=== PATIENT | male | born 1985 | race Caucasian/White ===

== ENCOUNTER 2017-06-09 12:34 | Emergency (ER) | payer SELFPAY ==
[~2017-06-09] VITALS: Ht 167.6 cm; Wt 77.1 kg
[2017-06-09 12:47] VITALS: BP 130/69
--- NOTE | 2017-06-09 13:11 | NUR ---
Patient to bed 04.
--- NOTE | 2017-06-09 13:19 | NUR ---
PT PRESENTS TO ER W/C/O LEFT EYE PAIN/SWELLING SINCE LAST NOC. PT DENIES ANY INJURY OR TRAUMA. DENIES N/V/D; SKIN IS PINK/WARM/DRY; AAOX4 WITH EVEN AND STEADY GAIT; LUNGS CLEAR BL; HR EVEN AND REGULAR; PT DENIES ANY FEVER, CP, SOB, OR COUGH AT THIS TIME; PATIENT STATES PAIN OF 4/10 AT THIS TIME; VSS; PATIENT POSITIONED FOR COMFORT; HOB ELEVATED; BEDRAILS UP X2; BED DOWN. ER MD MADE AWARE OF PT STATUS.
[2017-06-09 14:16] VITALS: BP 114/66
--- NOTE | 2017-06-09 14:16 | NUR ---
Patient discharged with v/s stable. Written and verbal after care instructions given and explained. Patient alert, oriented and verbalized understanding of instructions. Ambulatory with steady gait. All questions addressed prior to discharge. ID band removed. Patient advised to follow up with PMD. Rx of ERYTHROMYCIN given. Patient educated on indication of medication including possible reaction and side effects. Opportunity to ask questions provided and answered.
== END 2017-06-09 14:16 | disposition home or self-care (01) ==
LOC: MED 12:34
DX: H01.004 Unspecified blepharitis left upper eyelid (principal); F17.210 Nicotine dependence, cigarettes, uncomplicated
CPT/HCPCS: 99283

== ENCOUNTER 2020-08-17 01:18 | Emergency (ER) | payer SELFPAY ==
[~2020-08-17] VITALS: Ht 167.6 cm; Wt 79.4 kg
[2020-08-17 01:24] VITALS: BP 141/94
[2020-08-17] MEDS ORDERED: ERYTHROMYCIN 0.5% OPTH OINT 1 GM TUBE OP ONE (01:40)
--- NOTE | 2020-08-17 01:51 | NUR ---
no nursing interventions needed
[2020-08-17 01:52] VITALS: BP 141/94
--- NOTE | 2020-08-17 01:52 | NUR ---
Patient discharged with v/s stable. Written and verbal after care instructions given and explained. Patient alert, oriented and verbalized understanding of instructions. Ambulatory with steady gait. All questions addressed prior to discharge. ID band removed. Patient advised to follow up with PMD. Rx of ERYTHROMYCIN EYE CREAM given. Patient educated on indication of medication including possible reaction and side effects. Opportunity to ask questions provided and answered.
== END 2020-08-17 01:52 | disposition home or self-care (01) ==
LOC: MED 01:18
DX: H01.001 Unspecified blepharitis right upper eyelid (principal); H10.89 Other conjunctivitis; F17.210 Nicotine dependence, cigarettes, uncomplicated; F12.10 Cannabis abuse, uncomplicated; F14.10 Cocaine abuse, uncomplicated; Z71.6 Tobacco abuse counseling
CPT/HCPCS: 99283